=== PATIENT | male | born 1960 | race Caucasian/White ===

== ENCOUNTER 2022-11-02 00:27 | Emergency (ER) | payer OTHER, SELFPAY ==
--- NOTE | 2022-11-02 00:27 | DI.CT.S_ITS ---
PROCEDURE: CT STROKE INDICATIONS: code stroke TECHNIQUE: Noncontrast 4.5 mm thick angled axial sections acquired from the foramen magnum to the vertex, with coronal reformats. For radiation dose reduction, the following was used: automated exposure control, adjustment of mA and/or kV according to patient size. COMPARISON: None. FINDINGS: Image quality: Excellent. CSF spaces: Basal cisterns are patent. No extra-axial fluid collections. Ventricles are normal in size and shape. Brain: No midline shift. Left basal ganglia hyperdense blood products measuring at 2.7 x 1.9 x 1.5 cm, (12/28 and 08/20). No large area of hypodensity in a vascular distribution. Skull and face: Calvarium and visualized facial bones are intact, without suspicious lesions. Sinuses: Visualized sinuses and mastoids are clear. IMPRESSION: Left basal ganglia acute small to moderate-sized hemorrhagic infarct. Comment: Findings were discussed with Riley Stevens at 1244 a.m. This study fulfills neurological imaging criteria for inclusion or exclusion of acute stroke therapies based on available published neurological imaging guidelines. Dictated by: Tonny Briscoe M.D. on 11/02/2022 at 0:41 Approved by: Tonny Briscoe M.D. on 11/02/2022 at 0:45
--- NOTE | 2022-11-02 00:27 | DI.CT.S_ITS ---
PROCEDURE: CT ANGIO HEAD AND NECK INDICATIONS: code stroke TECHNIQUE: After the administration of intravenous contrast, 1 mm thick sections acquired from the aortic arch through the [place]. Post-contrast 4.5 mm thick sections then re-acquired from the foramen magnum to the vertex. 3-dimensional vakyndz-lvikwcgla-bnpqwxpzql (MIP) and/or volume rendering reformats were acquired of the central intracranial vasculature and neck separately. For radiation dose reduction, the following was used: automated exposure control, adjustment of mA and/or kV according to patient size. COMPARISON: [facility], CT, CT STROKE, 11/02/2022, 0:33. FINDINGS: Image quality: Excellent. BRAIN: CSF spaces: Question minimal effacement of the left lateral ventricle. Basal cisterns are patent. No extra-axial fluid collections. Brain: No midline shift. Small to moderate-sized left basal ganglia intraparenchymal hemorrhage. 2 areas of curvilinear increased density within this hematoma seen on the late arterial phase which increases on the delayed phase suggesting ongoing extravasation. Prasad-white matter interface appears intact. Skull and face: Calvarium and facial bones appear intact, without suspicious lesions. Orbits appear normal. Sinuses: Sinuses and mastoids are clear. HEAD CT ANGIOGRAPHY: Anterior circulation: Intracranial internal carotid arteries are normal in size and flow. Terminal ICA atherosclerotic calcifications. The flow within the paired anterior cerebral arteries is normal and symmetric. The flow within the middle cerebral arteries is normal and symmetric. The anterior communicating artery is seen. Left posterior communicating artery is seen. No aneurysms are seen. Posterior circulation: Visualized portions of the vertebral arteries demonstrate normal caliber, and join to form a normal appearing basilar artery. Flow within the posterior cerebral arteries is normal and symmetric. No aneurysms are seen. NECK CT ANGIOGRAPHY: Carotid system: The great vessels demonstrate a conventional anatomy as they arise from the aortic arch. The origins of the common carotid arteries appear patent. The common carotid arteries demonstrate normal caliber and courses. The bifurcation regions are both widely patent. Mild plaque at the bilateral carotid bulbs. Less than 50% stenosis. The internal carotid arteries demonstrate normal calibers and courses. Posterior circulation: The origins of the vertebral arteries both appear widely patent. The more superior extracranial portions of both vertebral arteries also demonstrate normal courses and calibers. They join to form a normal appearing basilar artery. Soft tissues: Visualized neck soft tissues demonstrate no suspicious abnormalities. Bones: No suspicious bony lesions. Visualized cervical spine appears normally aligned. Mild to moderate degenerative change in the cervical spine. Missing dentition. IMPRESSION: 1. Left basal ganglia intraparenchymal hemorrhage. Findings of ongoing extravasation. 2. Question of minimal effacement of the left lateral ventricle. 3. No large vessel occlusion. No aneurysm identified. 4. No critical stenosis in the neck. Less than 50% stenosis at the bilateral ICA. Any quantitative measurements of stenosis were performed using NASCET criteria. Dictated by: Tonny Briscoe M.D. on 11/02/2022 at 1:08 Approved by: Tonny Briscoe M.D. on 11/02/2022 at 1:19
[2022-11-02 00:28] VITALS: BMI 28.5
--- NOTE | 2022-11-02 00:31 | ED_ITS ---
HPI - General Adult General Chief complaint: Weakness Stated complaint: Stroke Time Seen by Provider: 11/02/22 00:27 Source: patient and EMS Mode of arrival: EMS Limitations: no limitations History of Present Illness HPI narrative: Patient is a 62-year-old male. History of hypertension and iiv-cdwyyjp-boazpfxet diabetes. Not on anticoagulation. Was at his normal state of health when yesterday was celebrating his birthday. He states that he was at a [employer] with some friends. He does admit to drinking alcohol. He states that he was playing some music. He states that he was sitting on a stool playing the guitar when he started to notice that his right leg and then his right hand were tingling. He states he went to stand up from the stool and could not because his right side was very weak and not coordinated. He denies headache or vision changes. No nausea vomiting. No chest pain. No shortness of breath. No trauma. No vision changes. Who was family members who contacted the paramedics. Paramedics stated that he could not lift his right arm. Was hypertensive with systolic with the 170s enroute. No medications administered prior to arrival here. Here in the ER he states that he feels like he is had a stroke. He is weak on his right side. Related Data Allergies Allergy/AdvReac Type Severity Reaction Status Date / Time No Known Drug Allergies Allergy Verified 11/02/22 01:15 Review of Systems Review of Systems ROS Unobtainable: All systems reviewed & are unremarkable except as noted in HPI and below Patient History Medical History Diabetes Hypertension Social History Smoking Status: Never smoker Exam Const General: cooperative, comfortable, well groomed and No ill appearing HENMT Head: normal to inspection and normocephalic Face and sinus: normal facial exam Eyes General: Yes appearance normal, both eyes and all related structures Resp Effort & Inspection: normal respiratory effort Auscultation: clear to auscultation bilaterally Cardio Rate: tachycardic Rhythm: regular rhythm GI Inspection: normal to inspection and non-distended Palpation: soft Skin General: no rashes or lesions noted Neuro General: patient alert, patient awake and patient oriented x3 Cognition: normal cognition Extrem Other: No gross deformities Psych Appearance: grossly normal and well kempt Scores GCS Gina coma scale eye opening: Spontaneous [place] coma scale verbal response: Orientated [place] coma scale motor response: Obey commands Gina coma scale total score: 15 NIH Stroke Scale Level of Conciousness: Alert, keenly responsive Ask month/age: Answers both questions correctly. Open/close eyes, close hand: Performs both tasks correctly Best gaze horizontal: Normal Visual potter: No visual loss Facial palsy: Normal symetrical movement Left arm drift: No drift for full 10 sec Right arm drift: Some effort against gravity, cannot maintain, drifts down to bed Left leg drift: No drift for full 5 sec Right leg drift: Some effort against gravity, cannot maintain, drifts down to bed Limb ataxia: Present in two limbs Sensory on face/arms/legs: Severe to total sensory loss, not aware of touch, coma, quadriplegic Best language: Mild to moderate, slurs some words Dysarthria: Mild to mod,some slurring Extinction or inattention: No abnormality Total NIH Stroke scale score: 10 Course Orders Ordered: ED Orders 11/02/22 00:15 Complete Blood Count AUTO DIFF Stat Comprehensive Metabolic Panel Stat Ethanol (ETOH) Stat Lipase Stat Magnesium Stat PTT Partial Thromboplastin Aramis Stat Prothrombin Time INR Stat Troponin & CK Cardiac Panel Stat 11/02/22 00:[address] angio head and neck Stat 11/02/22 00:29 EKG-12 Lead Stat 11/02/22 01:21 COVID19 -Nasal RAPID Stat Nicardipine HCl 25 mg/ Sodium (Chloride) 250 mls @ 50 mls/hr IV TITRATE KSENIA; Protocol Last Admin: 11/02/22 01:05 Dose: 5 mg/hr, 50 mls/hr Documented By: RICH Sodium Chloride (Normal Saline 0.9%) 1,000 mls @ 125 mls/hr IV CONT KSENIA Last Admin: 11/02/22 01:05 Dose: 125 mls/hr Documented By: RICH Medical Decision Making Lab Data Lab results reviewed: Yes I reviewed the patient's lab results. 11/02/22 00:15 11/02/22 00:15 Labs: Lab Results 11/02/22 11/02/22 11/02/22 Range/Units 00:15 00:15 00:15 WBC 7.6 (4.5-11.0) X10^3/uL RBC 4.99 (4.5-5.9) X10^6/uL Hgb 16.0 (13.5-17.5) g/dL Hct 46.1 (41-53) % MCV 92.4 (80-100) fL MCH 32.1 (26-34) PG MCHC 34.7 (30-36) % RDW 12.8 (11.6-14.8) % Plt Count 231 (150-400) X10^3/uL Neut % (Auto) 84.1 H (50-75) % Lymph % (Auto) 8.3 L (25-40) % [place] % (Auto) 6.6 (3-14) % Eos % (Auto) 0.5 L (2-4) % Baso % (Auto) 0.5 (0-2) % Neut # (Auto) 6400 (6187-0150) /uL Lymph # (Auto) 600 L (3801-9613) /uL [place] # (Auto) 500 (0-900) /uL Eos # (Auto) 0 (0-450) /uL Baso # (Auto) 0 (0-100) /uL PT 12.7 (10.1-12.7) SECONDS INR 1.1 (0.9-1.3) APTT 32 (26-36) SECONDS Sodium 142 (137-145) mmol/L Potassium 4.1 (3.4-5.1) mmol/L Chloride 102 (98-107) mmol/L Carbon Dioxide 28 (22-32) mmol/L BUN 26 H (9-20) mg/dL Creatinine 1.19 (0.66-1.25) mg/dL Estimated GFR > 60 (>60) mL/min BUN/Creatinine Ratio 21.8 (6-22) Glucose 165 H (80-110) mg/dL Calcium 9.4 (8.4-10.2) mg/dL Magnesium 2.0 (1.6-2.3) mg/dL Total Bilirubin 0.8 (0.2-1.3) mg/dL AST 67 H (17-59) IU/L ALT 61 H (<50) IU/L Alkaline Phosphatase 75 (38-126) U/L Total Creatine Kinase (55-170) U/L CK-MB (CK-2) CK-MB (CK-2) Rel Index Troponin I (0.01-0.034) ng/mL Total Protein 8.1 (6.3-8.2) g/dL Albumin 5.0 (3.5-5.0) g/dL Globulin 3.1 (1.7-4.1) g/dL Albumin/Globulin Ratio 1.6 (1.0-2.8) Lipase 89 (23-300) U/L Ethyl Alcohol 24 H ( - 10) mg/dL SARS-CoV-2 (PCR) (Negative) 11/02/22 11/02/22 Range/Units 00:15 01:21 WBC (4.5-11.0) X10^3/uL RBC (4.5-5.9) X10^6/uL Hgb (13.5-17.5) g/dL Hct (41-53) % MCV (80-100) fL MCH (26-34) PG MCHC (30-36) % RDW (11.6-14.8) % Plt Count (150-400) X10^3/uL Neut % (Auto) (50-75) % Lymph % (Auto) (25-40) % [place] % (Auto) (3-14) % Eos % (Auto) (2-4) % Baso % (Auto) (0-2) % Neut # (Auto) (2400-9148) /uL Lymph # (Auto) (9820-5020) /uL [place] # (Auto) (0-900) /uL Eos # (Auto) (0-450) /uL Baso # (Auto) (0-100) /uL PT (10.1-12.7) SECONDS INR (0.9-1.3) APTT (26-36) SECONDS Sodium (137-145) mmol/L Potassium (3.4-5.1) mmol/L Chloride (98-107) mmol/L Carbon Dioxide (22-32) mmol/L BUN (9-20) mg/dL Creatinine (0.66-1.25) mg/dL Estimated GFR (>60) mL/min BUN/Creatinine Ratio (6-22) Glucose (80-110) mg/dL Calcium (8.4-10.2) mg/dL Magnesium (1.6-2.3) mg/dL Total Bilirubin (0.2-1.3) mg/dL AST (17-59) IU/L ALT (<50) IU/L Alkaline Phosphatase (38-126) U/L Total Creatine Kinase 1185 H (55-170) U/L CK-MB (CK-2) TNP CK-MB (CK-2) Rel Index TNP Troponin I 0.042 H (0.01-0.034) ng/mL Total Protein (6.3-8.2) g/dL Albumin (3.5-5.0) g/dL Globulin (1.7-4.1) g/dL Albumin/Globulin Ratio (1.0-2.8) Lipase (23-300) U/L Ethyl Alcohol ( - 10) mg/dL SARS-CoV-2 (PCR) Negative (Negative) Point of Care Testing Glucose POC 141 Point of care testing: Point of Care Testing Glucose POC [address] scan - head: Radiologist's Impression: PROCEDURE:? CT STROKE ? INDICATIONS:? code stroke ? TECHNIQUE:? Noncontrast 4.5 mm thick angled axial sections acquired from the foramen magnum to the vertex, with coronal reformats.? For radiation dose reduction, the following was used:? automated exposure control, adjustment of mA and/or kV according to patient size.? ? COMPARISON:? None. ? FINDINGS:? Image quality:? Excellent.? ? CSF spaces:? Basal cisterns are patent.? No extra-axial fluid collections.? Ventricles are normal in size and shape.? ? Brain:? No midline shift.? Left basal ganglia hyperdense blood products measuring at 2.7 x 1.9 x 1.5 cm, (12/28 and 08/20).? No large area of hypodensity in a vascular distribution. ? Skull and face:? Calvarium and visualized facial bones are intact, without suspicious lesions.? ? Sinuses:? Visualized sinuses and mastoids are clear.? ? IMPRESSION:? Left basal ganglia acute small to moderate-sized hemorrhagic infarct. ? Comment: Findings were discussed with Riley Stevens at 1244 a.m. ? This study fulfills neurological imaging criteria for inclusion or exclusion of acute stroke therapies based on available published neurological imaging guidelines.? ? CTA - brain/neck: Radiologist's Impression: PROCEDURE:? CT ANGIO HEAD AND NECK ? INDICATIONS:? code stroke ? TECHNIQUE:? After the administration of intravenous contrast, 1 mm thick sections acquired from the aortic arch through the [place].? Post-contrast 4.5 mm thick sections then re-acquired from the foramen magnum to the vertex.? 3-dimensional ejjplnf-pbpciuidz-tvmoumextb (MIP) and/or volume rendering reformats were acquired of the central intracranial vasculature and neck separately. For radiation dose reduction, the following was used:? automated exposure control, adjustment of mA and/or kV according to patient size.? ? COMPARISON:? [facility], CT, CT STROKE, 11/02/2022, 0:33. ? FINDINGS:? Image quality:? Excellent.? ? BRAIN:? CSF spaces:? Question minimal effacement of the left lateral ventricle.? Basal cisterns are patent.? No extra-axial fluid collections.? ? Brain:? No midline shift.? Small to moderate-sized left basal ganglia intraparenchymal hemorrhage.? 2 areas of curvilinear increased density within this hematoma seen on the late arterial phase which increases on the delayed phase suggesting ongoing extravasation.? Prasad-white matter interface appears intact.? ? Skull and face:? Calvarium and facial bones appear intact, without suspicious lesions.? Orbits appear normal.? ? Sinuses:? Sinuses and mastoids are clear.? ? HEAD CT ANGIOGRAPHY:? Anterior circulation:? Intracranial internal carotid arteries are normal in size and flow.? Terminal ICA atherosclerotic calcifications.? The flow within the paired anterior cerebral arteries is normal and symmetric.? The flow within the middle cerebral arteries is normal and symmetric.? The anterior communicating artery is seen.? Left posterior communicating artery is seen.? No aneurysms are seen.? ? Posterior circulation:? Visualized portions of the vertebral arteries demonstrate normal caliber, and join to form a normal appearing basilar artery.? Flow within the posterior cerebral arteries is normal and symmetric.? No aneurysms are seen.? ? NECK CT ANGIOGRAPHY:? Carotid system:? The great vessels demonstrate a conventional anatomy as they arise from the aortic arch.? The origins of the common carotid arteries appear patent.? The common carotid arteries demonstrate normal caliber and courses.? The bifurcation regions are both widely patent.? Mild plaque at the bilateral carotid bulbs.? Less than 50% stenosis. ?The internal carotid arteries demonstrate normal calibers and courses.? ? Posterior circulation:? The origins of the vertebral arteries both appear widely patent.? The more superior extracranial portions of both vertebral arteries also demonstrate normal courses and calibers.? They join to form a normal appearing basilar artery.? ? Soft tissues:? Visualized neck soft tissues demonstrate no suspicious abnormalities.? ? Bones:? No suspicious bony lesions.? Visualized cervical spine appears normally aligned.? Mild to moderate degenerative change in the cervical spine.? Missing dentition.? ? ? IMPRESSION:? 1. Left basal ganglia intraparenchymal hemorrhage.? Findings of ongoing extravasation. ? 2. Question of minimal effacement of the left lateral ventricle. ? 3. No large vessel occlusion.? No aneurysm identified. ? 4. No critical stenosis in the neck.? Less than 50% stenosis at the bilateral ICA.? ? Any quantitative measurements of stenosis were performed using NASCET criteria.? ECG Data Attestation: I personally reviewed and interpreted this ECG as follows: Interpretation: Sinus tachycardia Ventricular rate 124 Normal axis Normal QRS Normal QTC Nonspecific ST T wave changes MDM Narrative Medical decision making narrative: Patient arrived approximately 30 minutes of the onset of the symptoms. Patient was hypertensive with systolic blood pressure in the 170s and diastolic in the 110s. Cardene was started. CT scan of the head shows left-sided intraparenchymal hemorrhage. Patient has very little movement of his right upper and right lower extremity. He is almost total sensory loss to his right upper and right lower extremity as well. He denies any headache or vision changes. Initially patient was not having any slurring of his words or dysarthria however did develop this while here in the ER. We did discuss the case with Dr. Mathew stroke neurologist at [facility] who accepts the patient in transfer. Patient does require air transport given his presenting symptoms. Patient is currently stable for transport. Patient's phone number is [phone] Discharge Plan Departure Patient Disposition: [facility] Clinical Impression: Hemorrhagic stroke, Hypertension
[2022-11-02 00:41] LABS: Add Manual Diff / Slide Review NO; Basophils Absolute Auto 0 /uL (0-100); Basophils Percent Auto 0.5 % (0-2); Eosinophils Absolute Auto 0 /uL (0-450); Eosinophils Percent Auto 0.5 % (2-4); Hematocrit 46.1 % (41-53); Lymphocytes Absolute Auto 600 /uL (1100-4500); Lymphocytes Percent Auto 8.3 % (25-40); Mean Corpuscular HGB Conc 34.7 % (30-36); Mean Corpuscular Hemoglobin 32.1 PG (26-34); Mean Corpuscular Volume 92.4 fL (80-100); Monocytes Absolute Auto 500 /uL (0-900); Monocytes Percent Auto 6.6 % (3-14); Neutrophils Absolute Auto 6400 /uL (1500-7000); Neutrophils Percent Auto 84.1 % (50-75); Platelet Count 231 X10^3/uL (150-400); Red Blood Cell Count 4.99 X10^6/uL (4.5-5.9); Red Cell Distribution Width 12.8 % (11.6-14.8); White Blood Cell Count 7.6 X10^3/uL (4.5-11.0)
[2022-11-02 00:48] LABS: INR 1.1 (0.9-1.3); Prothrombin Time 12.7 SECONDS (10.1-12.7)
[2022-11-02 00:51] LABS: Creatine Kinase 1185 U/L (55-170); PTT Partial Thromboplastin Tim 32 SECONDS (26-36)
[2022-11-02 00:52] LABS: Alanine Aminotransferase 61 IU/L (<50); Albumin Globulin Ratio 1.6 (1.0-2.8); Alkaline Phosphatase 75 U/L (38-126); Aspartate Aminotransferase 67 IU/L (17-59); BUN Creatinine Ratio 21.8 (6-22); Bilirubin Total 0.8 mg/dL (0.2-1.3); Blood Urea Nitrogen 26 mg/dL (9-20); Calcium 9.4 mg/dL (8.4-10.2); Carbon Dioxide 28 mmol/L (22-32); Chloride 102 mmol/L (98-107); Estimated Glomerular Filt Rate > 60 mL/min (>60); Ethanol (ETOH) 24 mg/dL; Globulin 3.1 g/dL (1.7-4.1); Glucose 165 mg/dL (80-110); HEMOLYSIS < 15 (0-50); Lipase 89 U/L (23-300); Potassium 4.1 mmol/L (3.4-5.1); Sodium 142 mmol/L (137-145); Total Protein 8.1 g/dL (6.3-8.2)
[2022-11-02 01:04] LABS: Troponin I 0.042 ng/mL (0.01-0.034)
[2022-11-02] MEDS: NICARDIPINE 25 MG in SODIUM CHLORIDE 0.9% 240 ML 50 MG IV (01:05)
[2022-11-02] MEDS: SODIUM CHLORIDE 0.9% 1,000 ML 125 ML IV (01:05)
[2022-11-02 01:36] LABS: COVID19 -Nasal RAPID Negative (Negative)
== END 2022-11-02 02:13 | disposition short-term general hospital (02) ==
LOC: ED 01:32
PROVIDERS: Emergency Provider Emergency Medicine; PCP Family Medicine
DX: I62.9 Nontraumatic intracranial hemorrhage, unspecified (principal); I10 Essential (primary) hypertension; R29.710 NIHSS score 10; Z20.822 Contact with and (suspected) exposure to COVID-19
CPT/HCPCS: 36415; 70450; 70496; 70498; 80053; 80320; 82550; 82962; 83690; 83735; 84484; 85025; 85610; 85730; 87635; 93005; 93010; 96365; 99284; 99285; 99291; 99292; C9803